=== PATIENT | male | born 1955 | race Caucasian/White ===

== ENCOUNTER → 2018-01-16 14:45 | Outpatient (CLI) | payer OTHER, SELFPAY ==
--- NOTE | 2018-01-16 | LES_PTH ---
PATIENT: SOHEIAL GAINES LOC: [facility] U#:[id number] AGE/SX: 69/M ROOM: RE01/16/[address]: Dr. Jt Flores MD : 1955 BED: DIS: SPEC #: [id number] RECD: 01/16/18 16:38 STATUS: ALYSE LUIS FERNANDO #: [id number] KIKO: 01/16/18 00:[address]: Jt Flores DEPT: SURGICAL PATHOLOGY RECD BY: Jeffry Nieves ENTERED: 01/19/18 09:51 SP TYPE: Lesion OTHR DR: Dr. Mark Walsh MD Tissues: Thigh, NOS Procedures: Surgery Specimen Level IV HEADER OPERATION: Excision right thigh lesion PRE-OP DIAGNOSIS: Uncertain neoplasm right thigh TISSUE SUBMITTED: Right thigh tissue MICROSCOPIC DIAGNOSIS Skin lesion of right thigh, biopsy: Atypical squamous lesion, completely excised. See comment. 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 Case has been reviewed in consultation with Dr. Auguste who concurs with the above diagnosis. IDC:SJ MICROSCOPIC DESCRIPTION Slides are reviewed. GROSS DESCRIPTION Received in fixative is one container labeled with the patient's name and designated right thigh tissue. The specimen consists of a arboleda-white skin ellipse measuring 2.5 x 1 cm and up to 0.5 cm in thickness. There is a raised nodular lesion on the surface measuring 0.5 cm in diameter. The specimen is inked, serially sectioned and submitted entirely in two cassettes. Cassette 2 contains the lesion. / CECIL:russ 01/19/18 TC:5 CPT: 42856
== END ==
PROVIDERS: Family Provider Family Medicine; PCP Family Medicine; Referring Provider Surgery; Visit Provider Surgery
DX: L98.8 Other specified disorders of the skin and subcutaneous tissue (principal)
CPT/HCPCS: 88305

== ENCOUNTER 2021-12-28 09:20 | Day surgery (SDC) | payer OTHER, SELFPAY ==
--- NOTE | 2021-12-28 09:46 | HP.PCM_ITS ---
History and Physical Date of Admission: 12/28/21 Visit Reasons:?C-Scope Chief Complaint: c-scope Is patient in pain?: No Allergies lisinopril Allergy (Mild, Verified 12/11/21 12:46) cough Medications multivitamin 1 tab PO DAILY 11/19/21 [History Confirmed 12/11/21] amino acids tab PO DAILY 12/11/21 [History Confirmed 12/11/21] PFSH Medical History?(Updated 12/11/21 @ 05:[address] Jt Flores MD) Crohns disease History of back problems Lipoma Skin lesion Sleep apnea Surgical History? History of colectomy History of fracture of left ankle History of tonsillectomy Family History?(Updated 12/11/21 @ 12:45 by Osiris Lopez) Father Cancer ?? ? lung cancer Heart diseaseBrother Heart disease HypertensionMother High cholesterol Social History? Smoking Status:? Former smoker alcohol intake:? current alcohol intake frequency: a few times a week substance use type:? does not use HPI HPI HPI: 66-year-old gentleman who is referred for surgical consultation regarding potential colonoscopy.The patient had a previous exam approximately 4 years ago.? He has had a long-term history of right lower quadrant pain.? He has a personal history of colon polyps.? In addition he has a history of anal stenosis.? I had assisted him January 16, 2018 with excision of a right poste rior thigh skin lesion.? Pathology at that time showed a acanthoma completely excised. By the report the patient also carries a history of Crohn's disease.He states that in 1987 he had a right colectomy.? That showed ileitis.? He states that Dr. Esteban Rodriguez treated him for period of time and then he came off his medication and has not had symptoms since.? His previous most recent colonoscopy 4 years ago.? Colon polyps were identified.? He was instructed that he should be on an every 3-year course. He has developed what appears to be eczematous rash.? Low back neck area.? He has been putting some gkir-goq-skzehna topical steroid cream on.? Has not notified his primary care physician Dr. Walsh yet nor seen a privacy officer.? I do advise 1 or both. No abdominal pain.? No bright red blood per rectum or melena.? No diarrhea.? No unexpected weight loss.? The patient is very physically active. ROS General General: No weight change, appetite, fatigue, colon cancer, breast cancer or weakness HEENT HEENT: No difficulty swallowing, eye injury, eye surgery, swollen glands or hoarseness Endo Endocrine: No thyroid disease, diabetes mellitus, thyroid cancer, Hair loss, heat intolerance or cold intolerance Skin Skin: Yes rash; No changing moles Breast Breast: No left breast lump, right breast lump, nipple discharge, breast pain, abnormal mammogram, abnormal US or breast enlargement Musc Musculoskeletal: Yes arthritis; No back problems, rheumatoid arthritis, gout or joint pain Cardio Cardiovascular: No murmur, pacemaker, heart disease, atrial fibrillation, high blood pressure, heart attack, heart stent, palpitations, shortness of breat with exertion or chest pain Psych Psychiatric: No depression, anxiety or hearing voices Resp Respiratory: No shortness of breath, Yes sleep apnea, No cough, No COPD, No asthma, No emphysema and No wheezing Additional Details: uses c-pap Gastro Gastrointestinal: No abdominal pain, No nausea or vomiting, No diarrhea, No constipation, No blood in stool, Yes acid reflux, No hemorrhoids, No ulcers, No gallbladder problem and No black,tarry stools Jewel Hematologic: No blood thinners, No blood disorders, No bleeding, No anemia and No blood clots Neuro Neurologic: No system reviewed and no additional complaints, except as documented, No as per HPI, No abnormal gait, No abnormal hearing, No abnormal movements, No abnormal speech, No behavioral changes, No burning sensations, No confusion, No convulsions, No disequilibrium, No dizziness, No localized weakness, No frequent falls, No headache(s), No lack of coordination, No loss of vision, No memory loss, No numbness, No other visual disturbances, No radicular pain, No restless legs, No sensory deficit, No syncope, No tingling, No tremor(s), No weakness and No other Exam Const General: cooperative, healthy appearing, comfortable and no acute distress [facility] Head: normal to inspection Other: Low posterior neck upper shoulder midline area has a diffuse mild erythematous rash. Chest Chest palpation & inspection: normal inspection of the chest Other: Low back demonstrates diffuse punctate erythematous rash Resp Effort & Inspection: normal respiratory effort Auscultation: clear to auscultation bilaterally Cardio Rate: regular rate Rhythm: regular rhythm GI Inspection: normal to inspection Palpation: soft and no hepatosplenomegaly Auscultation: normal bowel sounds Other: Well-healed vertical right pararectus incision. Musc Cervical Spine: normal cervical lordosis Skin Other: Rashes as noted upper chest low neck area posteriorly and low back area Neuro General: patient alert, patient awake and patient oriented x3 Extrem General: no calf tenderness Psych Appearance: grossly normal Assessment and Plan Assessment and Plan (1) Personal history of colonic polyps: ?Status:?Acute (2) Crohns disease: ?Status:?Acute ?Plan: I recommended the patient a colonoscopy with possible biopsy or polypectomy as indicated.? He is aware of the technique, benefit, risk of alternatives.? He has had an opportunity ask and have questions answered.? We will schedule procedure at his discretion. Regarding the patient's new onset of a month or 6 weeks of rash recommend either primary care evaluation or dermatology recommendation for suspected eczema. I appreciate the opportunity of assisting with the surgical care Copy: Dr. Mark Flores M.D., F.A.C.S. I have examined the patient and the H&P has been reviewed. There are no clinical changes since date of exam. Jt Flores M.D., F.A.C.S.
[2021-12-28 09:50] VITALS: BP 168/98; PULSE 65; RESP 18; TEMP 36.1; O2SAT 99; BMI 23.8
[2021-12-28] MEDS: Lactated Ringers 1,000 ML 15 ML IV (10:01)
--- NOTE | 2021-12-28 10:30 | COLBX_PTH ---
PATIENT: SOHEILA GAINES LOC: [facility] U#:[id number] AGE/SX: 66/M ROOM: RE12/28/[address]: Dr. Jt Flores MD : 1955 BED: DIS: 12/28/2021 SPEC #: [id number] RECD: 12/28/21 11:41 STATUS: ALYSE REIsaac #: [id number] KIKO: 12/28/21 10:[address]: Jt Flores DEPT: SURGICAL PATHOLOGY RECD BY: Dahiana Tirado ENTERED: 12/28/21 13:27 SP TYPE: COLON BX OTHR DR: Dr. Mark Walsh MD Tissues: A - COLON BIOPSY B - Ileum, NOS Procedures: Surgery Specimen Level IV HEADER OPERATION: Colonoscopy (MAC) PRE-OP DIAGNOSIS: History of colon polyps, Crohn?s disease TISSUE SUBMITTED: A ? Ileocolonic anastomosis biopsy, B - Terminal ileum biopsy MICROSCOPIC DIAGNOSIS A. Ileocolonic anastomotic site, biopsy: Acute and chronic inflammation, mild No evidence of malignancy. B. Terminal ileum, biopsy: No pathologic change. AM:russ 12/31/2021 MICROSCOPIC DESCRIPTION Slides are reviewed. GROSS DESCRIPTION A - Received in fixative is one container labeled with the patient's name and designated ileocolonic anastomosis biopsy. The specimen consists of multiple irregular fragments of light arboleda soft tissue that in aggregate measure 0.7 x 0.6 x 0.1 cm. The specimen is totally submitted in one cassette. B - Received in fixative is one container labeled with the patient's name and designated terminal ileum biopsy. The specimen consists of one irregular fragment of light arboleda soft tissue that measures 0.6 x 0.6 x 0.1 cm. The specimen is totally submitted in one cassette. / AM:russ 12/28/2021 TC:2 CPT: 48262 x2
[2021-12-28 10:50] VITALS: BP 119/62; BP 168/98; PULSE 56; RESP 12; TEMP 36.3; O2SAT 96
--- NOTE | 2021-12-28 10:52 | OP.CCLET_ITS ---
12/28/2021 Mark Walsh Re : Colonoscopy procedure for Mark Brewer Nico This procedure was performed on Tuesday, December 28, 2021. My impressions and recommendations are as follows: Impressions : - Non-thrombosed external hemorrhoids, non-thrombosed internal hemorrhoids and internal hemorrhoids that prolapse with straining, but spontaneously regress to the resting position (Grade II) found on digital rectal exam. - Diverticulosis in the sigmoid colon and in the descending colon.Few. - Patent end-to-end ileo-colonic anastomosis, characterized by erythema and moderate stenosis. Biopsied the terminal ilium and separately the ileocolonic anastomosis. Recommendations : - Discharge patient to home. - Resume previous diet. - Continue present medications. - Repeat colonoscopy in 5 years for surveillance. - Telephone my office for pathology results in 1 week. My findings are described in the full procedure note, which is enclosed. If I can be of further assistance, please feel free to contact me at Doctor phone number(s): Work: . Sincerely, Jt Flores MD 12/28/2021 10:51:15 AM This report has been signed electronically.
--- NOTE | 2021-12-28 10:52 | OP.COLON_ITS ---
Patient Name: Mark Palafox Procedure Date: 12/28/2021 10:21 AM Date of : 1955 Age: 66 Procedure: Colonoscopy Indications: Abdominal pain in the right lower quadrant Providers: Jt Flores MD Medicines: See the Anesthesia note for documentation of the administered medications Patient Profile: Last Colonoscopy: more than 3 years ago. Complications: No immediate complications. Procedure: Pre-Anesthesia Assessment: - Prior to the procedure, a History and Physical was performed, and patient medications and allergies were reviewed. The patient's tolerance of previous anesthesia was also reviewed. The risks and benefits of the procedure and the sedation options and risks were discussed with the patient. All questions were answered, and informed consent was obtained. Prior Anticoagulants: The patient has taken no previous anticoagulant or antiplatelet agents. ASA Grade Assessment: II - A patient with mild systemic disease. After reviewing the risks and benefits, the patient was deemed in satisfactory condition to undergo the procedure. After I obtained informed consent, the scope was passed under direct vision. Throughout the procedure, the patient's blood pressure, pulse, and oxygen saturations were monitored continuously. The Colonoscope was introduced through the anus and advanced to the ileocolonic anastomosis. The colonoscopy was performed without difficulty. The patient tolerated the procedure well. The quality of the bowel preparation was good. The terminal ileum was photographed. Scope In: 10:30:24 AM Scope Withdrawal Time 0 hours 8 minutes 15 seconds Scope Out: 10:44:18 AM Total Procedure Duration Time 0 hours 13 minutes 54 seconds Findings: The digital rectal exam findings include non-thrombosed external hemorrhoids, non-thrombosed internal hemorrhoids and internal hemorrhoids that prolapse with straining, but spontaneously regress to the resting position (Grade II). Pertinent negatives include normal prostate (size, shape, and consistency). A few diverticula were found in the sigmoid colon and descending colon. There was evidence of a prior end-to-end ileo-colonic anastomosis in the mid ascending colon. This was patent and was characterized by erythema and moderate stenosis. The anastomosis could not be traversed. Biopsies were taken with a cold forceps for histology. Impression: - Non-thrombosed external hemorrhoids, non-thrombosed internal hemorrhoids and internal hemorrhoids that prolapse with straining, but spontaneously regress to the resting position (Grade II) found on digital rectal exam. - Diverticulosis in the sigmoid colon and in the descending colon.Few. - Patent end-to-end ileo-colonic anastomosis, characterized by erythema and moderate stenosis. Biopsied the terminal ilium and separately the ileocolonic anastomosis. Recommendation: - Discharge patient to home. - Resume previous diet. - Continue present medications. - Repeat colonoscopy in 5 years for surveillance. - Telephone my office for pathology results in 1 week. Procedure Code(s): --- Professional --- 03486, Colonoscopy, flexible; with biopsy, single or multiple Diagnosis Code(s): --- Professional --- K64.1, Second degree hemorrhoids K64.4, Residual hemorrhoidal skin tags Z98.0, Intestinal bypass and anastomosis status R10.31, Right lower quadrant pain K57.30, Diverticulosis of large intestine without perforation or abscess without bleeding CPT copyright 2017 [employer]. All rights reserved. The codes documented in this report are preliminary and upon certified coder review may be revised to meet current compliance requirements. Jt Flores MD 12/28/2021 10:51:15 AM This report has been signed electronically. Number of Addenda: 0 Note Initiated On: 12/28/2021 10:21 AM
[2021-12-28 10:55] VITALS: BP 102/61; BP 168/98; PULSE 71; RESP 18; O2SAT 97
[2021-12-28 10:59] VITALS: BP 126/73; BP 168/98; PULSE 64; RESP 18; O2SAT 97
[2021-12-28 11:02] VITALS: BP 139/79; BP 168/98; PULSE 62; RESP 18; TEMP 36; O2SAT 97
[2021-12-28 11:14] VITALS: BP 168/98
== END 2021-12-28 11:38 | disposition home or self-care (01) ==
LOC: EN 09:23 → AC 09:25
PROVIDERS: PCP Family Medicine; Referring Provider Family Medicine; Visit Provider Surgery
PROC: 0DJD8ZZ Inspection of Lower Intestinal Tract, Via Natural or Artificial Opening Endoscopic (ICD-10-PCS; CPT 45378; principal; 2021-12-28 10:25)
DX: K57.30 Diverticulosis of large intestine without perforation or abscess without bleeding (principal); K50.90 Crohn's disease, unspecified, without complications; K64.4 Residual hemorrhoidal skin tags; Z86.010 Personal history of colon polyps; R10.31 Right lower quadrant pain; K63.5 Polyp of colon; Z87.891 Personal history of nicotine dependence
CPT/HCPCS: 45380; 88305; J7120